=== PATIENT | female | born 1945 | race Caucasian/White ===

== ENCOUNTER → 2018-01-24 09:46 | Outpatient (CLI) | payer MEDICARE, SELFPAY ==
[2018-01-24 10:08] LABS: Basophils # 0.1 K/mm3 (0-0.2); Basophils % 0.8 % (0.1-2.0); Eosinophils # 0.1 K/mm3 (0.0-0.4); Eosinophils % 1.9 % (0.1-12.0); Hematocrit 37.1 % (37.0-47.0); Hemoglobin 12.1 g/dL (12.2-16.2); Lymphocytes # 1.9 K/mm3 (0.7-4.5); Mean Corpuscular HGB Conc 32.8 g/dL (31.8-35.4); Mean Corpuscular Hemoglobin 29.8 pg (27.0-31.2); Mean Corpuscular Volume 90.8 fl (81-99); Mean Platelet Volume 7.9 fl (7.4-10.4); Monocytes # 0.4 K/mm3 (0.1-1.0); Monocytes % 5.1 % (1.7-9.3); Neutrophils # 4.6 K/mm3 (1.8-7.8); Neutrophils % 65.3 % (37.0-80.0); Platelet Count 234 K/mm3 (142-424); Red Blood Count 4.08 M/mm3 (4.20-5.40); Red Cell Distribution Width 13.4 % (11.5-17.5); White Blood Count 7.1 K/mm3 (4.8-10.8)
[2018-01-24 11:22] LABS: Alanine Aminotransferase 32 U/L (12-78); Albumin Level 3.7 gm/dL (3.4-5.0); Alkaline Phosphatase 59 U/L (46-116); Anion Gap 10.3 mEq/L (5-15); Aspartate Amino Transferase 17 U/L (15-37); Bilirubin,Total 0.3 mg/dL (0.2-1.0); Blood Urea Nitrogen 24 mg/dL (7-18); Calcium 9.2 mg/dL (8.5-10.1); Carbon Dioxide 29 mmol/L (21.0-32.0); Chloride 107 mmol/L (98-107); Chol/HDL Ratio 2.5 (1-3.5); Cholesterol 150 mg/dL (140-200); Creatinine,Serum 1.45 mg/dL (0.55-1.02); Estimated Glomerular Filt Rate 35 ml/min (>60); GFR (African American) 43 ML/MIN (>60); Globulin 3.6 gm/dl (1.3-3.2); Glucose 100 mg/dL (74-106); HDL Cholesterol 59 mg/dL (29-89); LDL Cholesterol 58 mg/dL (0-130); Potassium 4.3 mmoL/L (3.5-5.1); Sodium 142 mmol/L (136-145); Thyroid Stimulating Hormone 2.12 uIU/ml (0.358-3.740); Total Protein,Serum 7.3 gm/dL (6.4-8.2); Triglycerides 165 mg/dL (30-200); VLDL Cholesterol 33 mg/dL (0-40)
[2018-01-25 18:03] LABS: Vitamin B12 337 pg/mL (232-1245); Vitamin D 25 Hydroxy 22.7 ng/mL (30.0-100.0)
== END ==
PROVIDERS: PCP Nurse Practitioner Family; Visit Provider Nurse Practitioner Family
DX: I10 Essential (primary) hypertension (principal); E53.8 Deficiency of other specified B group vitamins; E55.9 Vitamin D deficiency, unspecified; G62.9 Polyneuropathy, unspecified
CPT/HCPCS: 36415; 80053; 80061; 82607; 82652; 84443; 85025

== ENCOUNTER → 2018-06-12 11:02 | Outpatient (CLI) | payer MEDICARE, SELFPAY ==
--- NOTE | 2018-06-12 11:06 | XR_ITS ---
XR foot wt bearing LT 3V HISTORY: ITS.REASON: pain ORDERING PHYSICIAN: Brittney Mckenzie DPM PATIENT AGE: 73 years COMPARISON: 03/26/2011 FINDINGS: There is mild hallux valgus with osteoarthritis of the first metatarsophalangeal joint and apparent prior bunionectomy of the distal first metatarsal. No acute fracture or dislocation evident. There is an old healed fifth metatarsal fracture. There is an intramedullary imer tibia with a bone plate along the lateral malleolus region. IMPRESSION: No change prior bunionectomy first metatarsal with Rohan valgus and osteoarthritis. Old fifth metatarsal fracture
--- NOTE | 2018-06-12 11:06 | XR_ITS ---
XR foot wt bearing RT 3V HISTORY: ITS.REASON: Pain ORDERING PHYSICIAN: Brittney Mckenzie DPM PATIENT AGE: 73 years COMPARISON: 07/16/2014 FINDINGS: There are mild osteoarthritic changes of the first metatarsophalangeal junction with mild hallux valgus. Prior bunionectomy. No fracture or dislocation. No lytic or blastic change with no significant change in the previous exam. IMPRESSION: No change mild hallux valgus with prior bunionectomy and osteoarthritis of the first MTP joint
== END ==
PROVIDERS: Visit Provider Podiatrist
DX: M79.671 Pain in right foot (principal); M79.672 Pain in left foot
CPT/HCPCS: 73630

== ENCOUNTER → 2018-07-21 10:40 | Outpatient (POV) | payer MEDICARE, SELFPAY | PROVIDERS: Visit Provider Physician Assistant | DX: Z00.00 Encounter for general adult medical examination without abnormal findings (principal) ==

== ENCOUNTER → 2018-07-26 10:49 | Outpatient (CLI) | payer MEDICARE, SELFPAY ==
--- NOTE | 2018-07-26 12:01 | XR_ITS ---
XR shoulder RT min 2V COMPARISON: PA and lateral chest 02/09/2014 HISTORY: Right shoulder pain TECHNIQUE: 3 views right shoulder FINDINGS: The clavicle is intact. There is slight cortical irregularity of the acromion process of the scapula at the AC joint and this could be due to the somewhat high riding humeral head using indication of underlying rotator cuff pathology. Humeral head and glenoid appear intact. There are no soft tissue calcifications. To old injury. IMPRESSION: Cortical irregularity of the acromion process likely posttraumatic in etiology, doubt acute fracture, suggest clinical correlation for possible rotator cuff pathology
--- NOTE | 2018-07-26 12:01 | XR_ITS ---
XR chest 2V HISTORY: ITS.REASON: COUGH ORDERING PHYSICIAN: Washington San MD PATIENT AGE: 73 years COMPARISON: None available FINDINGS: The cardiomediastinal silhouette and pulmonary vascularity are within normal limits. The lungs are clear without infiltrates, suspicious nodules, or pleural effusions. No acute bony abnormalities. IMPRESSION: Negative chest, no acute finding
== END ==
PROVIDERS: PCP Internal Medicine Adolescent Medicine; Visit Provider Internal Medicine Adolescent Medicine
DX: R05 Cough (principal); M25.511 Pain in right shoulder
CPT/HCPCS: 71046; 73030

== ENCOUNTER → 2018-10-11 12:25 | Outpatient (CLI) | payer MEDICARE, SELFPAY | PROVIDERS: Visit Provider Internal Medicine Adolescent Medicine | DX: R10.9 Unspecified abdominal pain (principal) | CPT/HCPCS: 87086 ==

== ENCOUNTER 2018-10-20 14:30 | Outpatient (RCR) | payer MEDICARE, SELFPAY | END 2018-10-20 14:35 | disposition home or self-care (01) | LOC: PT 14:30 | PROVIDERS: PCP Internal Medicine Adolescent Medicine; Visit Provider Psychiatry & Neurology Neurology | DX: R27.0 Ataxia, unspecified (principal) | CPT/HCPCS: 97110; 97112; 97163 ==

== ENCOUNTER 2019-04-03 10:00 | Outpatient (RCR) | payer MEDICARE, SELFPAY ==
--- NOTE | 2019-03-25 13:45 | HMH.PTOPEV ---
PT Outpatient Evaluation Rehab PT Outpatient Evaluation Start: 03/25/19 13:32 Freq: Status: Active Protocol: Document 03/25/19 13:32 SUSHANT (Rec: 03/25/19 13:45 SUSHANT [id number]) Electronically Signed By Devin Pavon, PT 03/25/19 13:32 Outpatient Therapy Subjective History Subjective History Pt reports decreased endurance and strength over the last ~3 -4 months. Pt reports a 'bad spell' in Jan., I woke up and didn't have the strength to get out of bed'. Pt reports multiple tests (MRI, CT, etc) were all negative, 'but I've fallen a bunch due to my blood pressure dropping and been struggling to regain my strength'. Pt reports rehab stay and HHPT over the lsat 3- 4 weeks has improved function, and BP med change 'seems to be helping'. Chief Complaint Gives out/Unstable,Weakness Symptom Type Other Symptoms Relieved By Rest/Positioning Symptoms Aggravated By Standing,Physical Activity, Walking Prior Functional Limitations Lifting,Housework,Standing, Squatting,Walking Current Functional Limitations Lifting,Housework,Standing, Squatting,Walking,Stairs, Balance Symptom Description Constant but Variable Lumbopelvic Eval Manual Muscle Test Right Knee Extension Strength Grade 5 Normal Knee Flexion Strength Grade 5 Normal Hip Flexion Strength Grade 4- Good- Hip Abduction Strength Grade 4- Good- Hip Adduction Strength Grade 4- Good- Hip External Rotation Strength Grade 4- Good- Hip Internal Rotation Strength Grade 4- Good- Hip Extension Strength Grade 4- Good- Ankle Dorsiflexion Strength Grade 5 Normal Gastronemius/Soleus Strength Grade 5 Normal Left Knee Extension Strength Grade 5 Normal Knee Flexion Strength Grade 5 Normal Hip Flexion Strength Grade 4 Good Hip Abduction Strength Grade 4 Good Hip Adduction Strength Grade 4 Good Hip External Rotation Strength Grade 4 Good Hip Internal Rotation Strength Grade 4 Good Hip Extension Strength Grade 4 Good Ankle Dorsiflexion Strength Grade 5 Normal Gastronemius/Soleus Strength Grade 5 Normal Balance Eval Hx of Falls Hx Falls Yes Number in last 6 months 8 Gait/Posture Asssessment General Gait Observation
== END 2019-04-03 10:05 | disposition home or self-care (01) ==
LOC: PT 10:00
PROVIDERS: Visit Provider Nurse Practitioner Family
DX: R29.6 Repeated falls (principal); R27.0 Ataxia, unspecified
CPT/HCPCS: 97110; 97112; 97163

== ENCOUNTER → 2019-04-13 16:20 | Outpatient (CLI) | payer MEDICARE, SELFPAY ==
[2019-04-13 17:11] LABS: Basophils # 0.1 K/mm3 (0-0.2); Basophils % 0.5 % (0.1-2.0); Eosinophils # 0.1 K/mm3 (0.0-0.4); Hematocrit 41.8 % (37.0-47.0); Hemoglobin 13.5 g/dL (12.2-16.2); Lymphocytes # 3.1 K/mm3 (0.7-4.5); Lymphocytes % 35.7 % (10-50); Mean Corpuscular HGB Conc 32.4 g/dL (31.8-35.4); Mean Corpuscular Hemoglobin 28.9 pg (27.0-31.2); Mean Corpuscular Volume 89.2 fl (81-99); Mean Platelet Volume 7.3 fl (7.4-10.4); Monocytes # 0.4 K/mm3 (0.1-1.0); Neutrophils # 5.1 K/mm3 (1.8-7.8); Neutrophils % 57.9 % (37.0-80.0); Platelet Count 240 K/mm3 (142-424); Red Blood Count 4.68 M/mm3 (4.20-5.40); Red Cell Distribution Width 13.5 % (11.5-17.5); White Blood Count 8.8 K/mm3 (4.8-10.8)
[2019-04-13 18:50] LABS: Alanine Aminotransferase 27 U/L (12-78); Albumin Level 3.8 gm/dL (3.4-5.0); Albumin/Globulin Ratio 1.1 (1.1-1.8); Alkaline Phosphatase 57 U/L (46-116); Anion Gap 14.6 mEq/L (5-15); Aspartate Amino Transferase 18 U/L (15-37); Bilirubin,Total 0.4 mg/dL (0.2-1.0); Blood Urea Nitrogen 19 mg/dL (7-18); Calcium 9.5 mg/dL (8.5-10.1); Carbon Dioxide 27 mmol/L (21.0-32.0); Chloride 102 mmol/L (98-107); Creatinine,Serum 1.28 mg/dL (0.55-1.02); Estimated Glomerular Filt Rate 41 ml/min (>60); GFR (African American) 49 ML/MIN (>60); Globulin 3.4 gm/dl (1.3-3.2); Glucose 91 mg/dL (74-106); Potassium 4.6 mmoL/L (3.5-5.1); Sodium 139 mmol/L (136-145); Total Protein,Serum 7.2 gm/dL (6.4-8.2)
== END ==
PROVIDERS: Visit Provider Internal Medicine Adolescent Medicine
DX: R10.84 Generalized abdominal pain (principal)
CPT/HCPCS: 36415; 80053; 85025

== ENCOUNTER 2019-04-17 12:47 | Outpatient (CLI) | payer MEDICARE, SELFPAY ==
[2019-04-17 12:37] VITALS: BMI 26.9
[2019-04-17 12:49] VITALS: BP 124/71; PULSE 62; RESP 18; TEMP 36.6; O2SAT 98
[2019-04-17 13:18] LABS: Anion Gap 15.1 mEq/L (5-15); Blood Urea Nitrogen 15 mg/dL (7-18); Calcium 9.2 mg/dL (8.5-10.1); Carbon Dioxide 24 mmol/L (21.0-32.0); Chloride 103 mmol/L (98-107); Creatinine Clearance Estimated 48 mL/min (50-200); Creatinine,Serum 1.31 mg/dL (0.55-1.02); Estimated Glomerular Filt Rate 40 ml/min (>60); GFR (African American) 48 ML/MIN (>60); Glucose 97 mg/dL (74-106); Potassium 4.1 mmoL/L (3.5-5.1); Sodium 138 mmol/L (136-145)
[2019-04-17 13:20] VITALS: BP 140/79; PULSE 70; RESP 18; TEMP 36.6; O2SAT 97
[2019-04-17 14:00] VITALS: BP 134/79; PULSE 69; RESP 18; TEMP 36.6; O2SAT 98
== END 2019-04-17 14:00 | disposition home or self-care (01) ==
LOC: INF 12:47
PROVIDERS: Visit Provider Nurse Practitioner Family
DX: E86.0 Dehydration (principal)
CPT/HCPCS: 80048; 96360

== ENCOUNTER → 2019-07-14 10:56 | Outpatient (POV) | payer MEDICARE, SELFPAY | PROVIDERS: Visit Provider Dermatology | DX: Z00.00 Encounter for general adult medical examination without abnormal findings (principal) ==

== ENCOUNTER → 2019-12-31 12:45 | Outpatient (CLI) | payer MEDICARE, SELFPAY ==
--- NOTE | 2019-12-31 12:49 | FL_ITS ---
PROCEDURE: FL BARIUM SWALLOW MODIFIED CLINICAL INDICATION: DIFFICULTY SWALLOWING COMPARISON: No exams were available for comparison TECHNIQUE: Patient administered varying consistencies of barium contrast, while viewed in lateral position under real-time fluoroscopy with cine recording. FLUOROSCOPY TIME:2 minutes and 22 seconds The study was performed in conjunction with speech pathologist. Please see that report & recommendations. FINDINGS: Patient was given varying consistencies of barium. There was premature spillage with vallecular pooling with thin liquids with mild delay in initiation of the swallowing mechanism with mild amount of residue. No aspiration or penetration. IMPRESSION: Mildly impaired pharyngeal phase without evidence of aspiration or penetration Please see speech pathologist report and recommendations. Dictated by: Mau Gonzales MD 01/01/2020 18:48 Electronically signed by Mau Gonzales MD in [place] 01/01/2020 18:48
--- NOTE | 2019-12-31 15:51 | HMH.SLMBS2 ---
Speech & Language Evaluation Speech/Language Mod Barium Swallow Start: 12/31/19 14:47 Freq: once Status: Complete Protocol: Document 12/31/19 15:11 CMAY (Rec: 12/31/19 15:50 CMAY [id number]) [facility] Recommendations Diet Dietary Recommendations Regular,Thin Liquids Treatment/Strategies Strategy/Precaution Recommend Sitting Upright (90 deg),Small Bites and Sips,Alternate Liquids/Solids Referrals/Other Recommended Referrals GI Consult Mod Barium Swallow Impressions Summary and Impressions Oral Phase Impression Minimal Impairment Oral Phase Summary Oral phase was WFL based on the results of this evaluation . Patient had adequate upper and lower dentition for mastication of mechancial soft and solid trials. Patient demonstrated a minimal amount of lingual residue following pudding trial. Pharyngeal Phase Impression Mild Impairment Pharyngeal Phase Summary Pharyngeal phase was mildly impaired. Premature spillage was observed and resulted in a moderate amount of vallecular pooling before swallow initiation on trials of thin liquids that cleared completely with swallow event. Swallow initiation was minimally delayed as bolus reached the level of the epiglottis before swallow was initiated with pudding trial. Minimal vallecular residue was also observed following trials of puree and solid that cleared with thin liquid wash and/or effortful swallow. Speech/Language MBS Assessment/Goals/Plan Assessment Date of Evaluation: 12/31/19 Evaluation Type Initial Certification Assessment/Problems Dysphagia Does Patient Qualify for Service No Qualify/Failure Comment Patient does not qualify for ST services at this time based on the results of today's evaluation. It is recommended that patient receive a GI consult to address esophageal phase of swallow. Recommendations PHYSICIAN CERTIFICATION: The specified thera
== END ==
PROVIDERS: PCP Nurse Practitioner Family; Visit Provider Nurse Practitioner Family
DX: R13.10 Dysphagia, unspecified (principal)
CPT/HCPCS: 70371; 92611

== ENCOUNTER → 2020-04-18 09:50 | Outpatient (CLI) | payer MEDICARE, SELFPAY ==
[2020-04-18 11:00] VITALS: PULSE 81; PULSE 85
--- NOTE | 2020-04-18 11:35 | XR_ITS ---
PROCEDURE: XR CHEST 2V CLINICAL HISTORY: DYSPNEA Dyspnea on exertion COMPARISON: WO CT CHEST W/O CONTRAST from 03/19/2014 CXR1 CHEST-PORTABLE from 03/05/2017 CXR2V XR chest 2V from 07/26/2018 CXR1VP XR chest portable from 10/06/2018 FINDINGS: The cardiomediastinal silhouette and pulmonary vascularity are within normal limits. The lungs are clear without infiltrates, suspicious nodules, or pleural effusions. No acute bony abnormalities. IMPRESSION: No acute findings. Dictated by: Mau Gonzales MD 04/18/2020 11:53 Electronically signed by Mau Gonzales MD in [place] 04/18/2020 11:53
== END ==
PROVIDERS: PCP Nurse Practitioner Family; Visit Provider Nurse Practitioner Family
DX: R06.09 Other forms of dyspnea (principal)
CPT/HCPCS: 71046; 94060; 94640; 94727; 94729

== ENCOUNTER → 2020-07-26 14:49 | Outpatient (POV) | payer MEDICARE, SELFPAY | PROVIDERS: Visit Provider Dermatology | DX: Z00.00 Encounter for general adult medical examination without abnormal findings (principal) ==

== ENCOUNTER → 2021-03-17 13:50 | Outpatient (CLI) | payer MEDICARE, SELFPAY ==
[2021-03-17 14:13] LABS: Basophils # 0.1 K/mm3 (0-0.2); Basophils % 0.8 % (0.1-2.0); Eosinophils # 0.2 K/mm3 (0.0-0.4); Eosinophils % 1.9 % (0.1-12.0); Hematocrit 40.7 % (37.0-47.0); Hemoglobin 13.4 g/dL (12.2-16.2); Lymphocytes # 2.6 K/mm3 (0.7-4.5); Lymphocytes % 32.4 % (10-50); Mean Corpuscular HGB Conc 32.8 g/dL (31.8-35.4); Mean Corpuscular Hemoglobin 29.5 pg (27.0-31.2); Mean Corpuscular Volume 89.8 fl (81-99); Mean Platelet Volume 7.7 fl (7.4-10.4); Monocytes # 0.4 K/mm3 (0.1-1.0); Monocytes % 4.9 % (1.7-9.3); Neutrophils # 4.9 K/mm3 (1.8-7.8); Platelet Count 196 K/mm3 (142-424); Red Blood Count 4.54 M/mm3 (4.20-5.40); Red Cell Distribution Width 13.7 % (11.5-17.5); White Blood Count 8.1 K/mm3 (4.8-10.8)
[2021-03-17 15:04] LABS: Blood Urea Nitrogen 19 mg/dl (7-17); Carbon Dioxide 26 mmol/L (22.0-30.0); Estimated Glomerular Filt Rate 31 ml/min (>60); GFR (African American) 38 ML/MIN (>60)
[2021-03-17 15:05] LABS: Alanine Aminotransferase 22 U/L (12-78); Albumin Level 4.6 g/dl (3.5-5.0); Albumin/Globulin Ratio 1.6 (1.1-1.8); Anion Gap 13.7 mEq/L (5-15); Aspartate Amino Transferase 34 U/L (14-36); Bilirubin,Total 0.4 mg/dl (0.2-1.3); Calcium 10.4 mg/dl (8.4-10.2); Chloride 105 mmol/L (98-107); Cholesterol 192 mg/dl (140-200); Globulin 2.8 g/dL (1.3-3.2); Glucose 105 mg/dl (74-100); HDL Cholesterol 57 mg/dl (40-60); Potassium 4.7 mmoL/L (3.5-5.1); Sodium 140 mmol/L (136-145); Total Protein,Serum 7.4 g/dl (6.3-8.2); Triglycerides 209 mg/dl (30-150); VLDL Cholesterol 42 mg/dL (0-40)
[2021-03-17 15:06] LABS: Alkaline Phosphatase 65 U/L (38-126); Chol/HDL Ratio 3.4 (1-3.5)
[2021-03-17 15:17] LABS: Direct LDL Cholesterol 95.56 mg/dL (100-129)
[2021-03-17 15:21] LABS: 25-OH Vitamin D, Total 43.5 ng/mL (30-100)
[2021-03-17 15:26] LABS: Coronavirus 19 IgG Antibody Positive (Negative); Coronavirus 19 IgM Antibody Negative (Negative)
[2021-03-17 15:54] LABS: Vitamin B12 310 pg/mL (239-931)
== END ==
PROVIDERS: Internal Medicine Adolescent Medicine; Visit Provider Internal Medicine Gastroenterology
DX: Z01.812 Encounter for preprocedural laboratory examination (principal); Z20.822 Contact with and (suspected) exposure to COVID-19; I10 Essential (primary) hypertension; E78.5 Hyperlipidemia, unspecified; E53.8 Deficiency of other specified B group vitamins; E55.9 Vitamin D deficiency, unspecified
CPT/HCPCS: 36415; 80053; 80061; 82306; 82607; 85025; 86328

== ENCOUNTER 2021-03-20 11:19 | Day surgery (SDC) | payer MEDICARE, SELFPAY ==
[2021-03-17 11:34] VITALS: BMI 27.3
[2021-03-20] VITALS (8 sets, daily range): BP systolic 141–193; BP diastolic 79–87; PULSE 60–82; RESP 14–20; TEMP 36.1–36.2; O2SAT 95–100
--- NOTE | 2021-03-20 13:47 | P.PN_ITS ---
[facility] Anesthesia Checklist - Patient Identification Patient Identification: Arm Band - Structural Data Admitted From: Long-term Nursing Facility Planned Operative Procedure/s: EGD - NPO Status Verified Time NPO: 00:00 - Airway Assessment Dentition: Good Dentition - Neurological Assessment Level of Consciousness: Awake, Alert Hx Seizures: No Numbness or tingling in extremities: No - Anesthesia Plan Anesthesia Risk discussed: Yes Anesthesia Plan: Verified ASA Class: III Anesthesia Type: MAC [facility] History Medical History: Reports:: Asthma, Chronic Obstructive Pulmonary Disease (COPD), Gastroesophageal Reflux Disease(GERD), Hyperlipidemia, Hypertension, Myocardial Infarction Denies:: Cancer, Diabetes Mellitus Type 1, Diabetes Mellitus Type 2, Internal Pacemaker, MRSA, Seizures *Have you ever received a pneumonia vaccine?: Yes *Have you received a flu vaccine this season?: Yes Other Medical History: Reports: Arthritis, Other Anesthesia experience/problems:: None Laterality Cases: Bilateral: Lumpectomy Other Surgeries: Yes: Cardiac Catheterization, Hysterectomy-Total. No: Pacemaker Amputation: No Fractures: No - *Social History Last grade of school completed: Some college Smoking Status: Never smoker Alcohol Intake: never Alcohol Intake Frequency:: other Substance Use Type: denies use *Occupational Status:: retired Housing: house *Travel in the last 8 weeks: None Family Hx:: Hyperlipidemia
--- NOTE | 2021-03-20 14:01 | P.PCN_ITS ---
[facility] Procedure Note Procedure Note:: Upper Endoscopy Procedure Report: Esophagogastroduodenoscopy with cold biopsies and TTS balloon dilation Endoscopost: Leonides Austin II, MD Referring Physician: Elvira ALONSO Date of Procedure: 03/20/2021 Equipment: Olympus GIF 190 standard upper endoscope Sedation: MAC sedation Indications: Mrs. Garzon is a 75-year-old female who is here for diagnostic upper endoscopy secondary to dyspepsia. She has had gnawing upper abdominal pain that lasted more than 10 days recently. She does get this dyspepsia intermittently but this does not last long. She does have heartburn and reflux that is 90% controlled with omeprazole. She does report some early satiety and intermittent dysphagia. She reports no bloating, belching or nausea. She does have some chronic constipation. Her last upper endoscopy was 28 years ago. Her last colonoscopy was 5 years ago and was normal. Procedure: Prior to the procedure, a history and physical exam was performed, and patient's medications and allergies were reviewed. The risks, benefits and alternatives of the sedation and procedure were discussed with the patient. All questions were answered and informed consent was obtained. The patient was brought to the procedure room. Patient identification and proposed procedure were verified by the physician and the nurse. The patient was placed in a left lateral decubitus position and the scope was passed under direct vision. Throughout the procedure, the patient's blood pressure, pulse, and oxygen saturations were monitored continuously. The upper GI endoscopy was accomplished without difficulty. The patient tolerated the procedure well. Findings: The scope was passed directly into the upper esophagus and advanced to the third portion of the duodenum. The post bulbar duodenum and duodenal bulb were normal with normal mucosa and conniventes. The scope was withdrawn through a normal duodenal bulb and pylorus into the stomach. There was evidence of linear reactive gastropathy of the antrum of the stomach. The remainder of the body and fundus of the stomach were grossly normal. Upon retroflexion there was no hiatal hernia. 2 biopsies were taken in the antrum and along the lesser curvature for histology to rule out gastritis and/or H pylori. There was a single fundic gland polyp in the body of the stomach that was removed via cold biopsy. The scope was then withdrawn into the esophagus. There was a serrated Z-line. Biopsies were taken at the GE junction. There were tertiary contractions and evidence of moderate esophageal dysmotility. The entire esophagus was dilated to 60 Icelandic/20 mm with a TTS hydrostatic balloon. There was some resistance at the cricopharyngeus. The remainder of the esophageal mucosa was normal. Impression: 1. Cricopharyngeal spasm status post dilation to 20 mm 2. Nonerosive GERD with moderate esophageal dysmotility 3. Bile reflux with moderate linear reactive gastropathy Plan: I will follow up the biopsies. The patient does have functional dyspepsia secondary to obstipation and gas pressure gradients. We will discuss additional dietary measures, fiber bowel regimen and treatment options.
--- NOTE | 2021-03-20 14:06 | P.PN_ITS ---
[facility] Anesthesia Record Part I Intake, IV Amount: 600 Estimated blood loss (mL): 0 Urine output (mL): 0 Blood Pressure: 141/79 SaO2: 96 Pulse Rate: 82 Respiratory Rate: 14 Temperature: 97.1 F Patient is:: Drowsy Stable to PACU at:: 14:02
== END 2021-03-20 15:00 | disposition home or self-care (01) ==
LOC: OUTP 11:21
PROVIDERS: PCP Nurse Practitioner Family; Visit Provider Internal Medicine Gastroenterology
PROC: 0DJ08ZZ Inspection of Upper Intestinal Tract, Via Natural or Artificial Opening Endoscopic (ICD-10-PCS; CPT 43235; principal; 2021-03-20 12:30)
DX: J39.2 Other diseases of pharynx (principal); K21.9 Gastro-esophageal reflux disease without esophagitis; K22.4 Dyskinesia of esophagus; K31.9 Disease of stomach and duodenum, unspecified; K31.7 Polyp of stomach and duodenum; J45.909 Unspecified asthma, uncomplicated; J44.9 Chronic obstructive pulmonary disease, unspecified; E78.5 Hyperlipidemia, unspecified; I10 Essential (primary) hypertension; I25.2 Old myocardial infarction; M19.90 Unspecified osteoarthritis, unspecified site; Z79.899 Other long term (current) drug therapy
CPT/HCPCS: 43239; 43249; 88305; C1726

== ENCOUNTER → 2021-06-10 11:59 | Outpatient (CLI) | payer MEDICARE, SELFPAY | PROVIDERS: PCP Internal Medicine Adolescent Medicine; Visit Provider Internal Medicine Gastroenterology | DX: Z20.822 Contact with and (suspected) exposure to COVID-19 (principal) ==

== ENCOUNTER → 2021-06-10 12:47 | Outpatient (CLI) | payer MEDICARE, SELFPAY | PROVIDERS: Visit Provider Internal Medicine Gastroenterology | DX: Z01.812 Encounter for preprocedural laboratory examination (principal); Z20.822 Contact with and (suspected) exposure to COVID-19; Z12.11 Encounter for screening for malignant neoplasm of colon | CPT/HCPCS: U0003 ==

== ENCOUNTER 2021-06-12 11:13 | Day surgery (SDC) | payer MEDICARE, SELFPAY ==
[2021-06-07 14:27] VITALS: BMI 27.3
[2021-06-12] VITALS (8 sets, daily range): BP systolic 166–187; BP diastolic 91–100; PULSE 78–94; RESP 18; TEMP 36.2–36.9; O2SAT 95–100
--- NOTE | 2021-06-12 13:20 | HMH.ANESCL ---
[facility] Anesthesia Checklist - Structural Data Admitted From: Home Planned Operative Procedure/s: colonoscopy Consent for Planned Operative Procedure(s) Verified: Yes - Airway Assessment C-Spine Mobility Assessed: Yes TMJ Mobility Assessed: Yes Dentition: Good Dentition - Neurological Assessment Level of Consciousness: Awake, Alert, Appropriate - Anesthesia Plan Anesthesia Risk discussed: Yes Anesthesia Plan: Verified ASA Class: III Anesthesia Type: MAC [facility] History I have reviewed the patient's past medical history: Yes Medical History: Reports:: Asthma, Chronic Obstructive Pulmonary Disease (COPD), Gastroesophageal Reflux Disease(GERD), Hyperlipidemia, Hypertension, Myocardial Infarction Denies:: Cancer, Diabetes Mellitus Type 1, Diabetes Mellitus Type 2, Internal Pacemaker, MRSA, Seizures *Have you ever received a pneumonia vaccine?: Yes *Have you received a flu vaccine this season?: Yes Other Medical History: Reports: Arthritis, Other Anesthesia experience/problems:: none Laterality Cases: Bilateral: Lumpectomy Other Surgeries: Yes: Cardiac Catheterization, Hysterectomy-Total. No: Pacemaker Amputation: No Fractures: No - *Social History Last grade of school completed: Some college Smoking Status: Never smoker Alcohol Intake: never Alcohol Intake Frequency:: other Substance Use Type: denies use *Occupational Status:: retired Housing: house Household Members: family, none *Travel in the last 8 weeks: None Family Hx:: Hyperlipidemia
--- NOTE | 2021-06-12 13:48 | P.PCN_ITS ---
[facility] Procedure Note Procedure Note:: Colonoscopy Procedure Report: Colonoscopy to hepatic flexure Endoscopist: Leonides Austin II, MD Referring physician: Elvira ALONSO Date of Procedure: June 12, 2021 Equipment: Olympus 190 variable stiffness pediatric colonoscope Sedation: MAC sedation Indication: Mrs. Garzon is a 76-year-old female who is here for diagnostic colonoscopy. The patient has had some chronic gnawing abdominal pain. She did have a recent EGD on March 20, 2021. This did show some bile reflux with moderate reactive gastropathy. The patient has had bowel irregularity with alternating constipation and diarrhea. Her last colonoscopy was approximately 5 years ago. She reports no rectal bleeding, weight loss or family history of colon cancer. She has had prior hysterectomy. Procedure: Prior to the procedure, a history and physical exam was performed, and patient's medications and allergies were reviewed. The risks, benefits and alternatives of the sedation and procedure were discussed with the patient. All questions were answered and informed consent was obtained. The patient was brought to the procedure room. Patient identification and proposed procedure were verified by the physician and the nurse. The patient was placed in a left lateral decubitus position and the scope was passed under direct vision. Throughout the procedure, the patient's blood pressure, pulse, and oxygen saturations were monitored continuously. The colonoscopy was accomplished without difficulty. The patient tolerated the procedure well. Findings: On digital rectal examination there was normal rectal tone. There were no external hemorrhoids. The colonoscope was introduced through the anal canal to the rectum and advanced to the hepatic flexure. There was some angulation and looping making completion to the cecum more difficult. There was pericolonic adhesions within the sigmoid colon from prior hysterectomy. The remainder of the mucosa of the transverse, descending, sigmoid and rectum were normal. Upon retroflexion within the rectum there were grade 1 internal hemorrhoids.The preparation was excellent throughout with Bay Preparation Score of 9. The cecal time was 12 minutes. Impression: 1. Normal colonoscopy to hepatic flexure 2. Pericolonic sigmoid adhesions (probably from prior hysterectomy) with colonic looping/tortuosity 3. Grade 1 internal hemorrhoids Plan: I will discuss the findings with the patient and family. The patient is clinically improved.
== END 2021-06-12 14:52 | disposition home or self-care (01) ==
LOC: OUTP 11:15
PROVIDERS: PCP Nurse Practitioner Family; Visit Provider Internal Medicine Gastroenterology
PROC: 0DJD8ZZ Inspection of Lower Intestinal Tract, Via Natural or Artificial Opening Endoscopic (ICD-10-PCS; CPT 45378; principal; 2021-06-12 13:00)
DX: K64.0 First degree hemorrhoids (principal); R10.9 Unspecified abdominal pain; K59.00 Constipation, unspecified; K56.51 Intestinal adhesions [bands], with partial obstruction; R19.7 Diarrhea, unspecified; J45.909 Unspecified asthma, uncomplicated; J44.9 Chronic obstructive pulmonary disease, unspecified; K21.9 Gastro-esophageal reflux disease without esophagitis; E78.5 Hyperlipidemia, unspecified; I10 Essential (primary) hypertension; I25.2 Old myocardial infarction; M19.90 Unspecified osteoarthritis, unspecified site
CPT/HCPCS: 45378

== ENCOUNTER → 2021-08-24 11:33 | Outpatient (CLI) | payer MEDICARE, SELFPAY ==
[2021-08-24 13:05] LABS: Chloride 105 mmol/L (98-107); Potassium 4.8 mmoL/L (3.5-5.1); Sodium 141 mmol/L (136-145)
[2021-08-24 13:08] LABS: Alanine Aminotransferase 22 U/L (12-78); Albumin Level 4.2 g/dl (3.5-5.0); Albumin/Globulin Ratio 1.6 (1.1-1.8); Alkaline Phosphatase 74 U/L (38-126); Anion Gap 14.8 mEq/L (5-15); Aspartate Amino Transferase 35 U/L (14-36); Bilirubin,Total 0.2 mg/dl (0.2-1.3); Blood Urea Nitrogen 20 mg/dl (7-17); Carbon Dioxide 26 mmol/L (22.0-30.0); Estimated Glomerular Filt Rate 40 ml/min (>60); GFR (African American) 48 ML/MIN (>60); Globulin 2.7 g/dL (1.3-3.2); Total Protein,Serum 6.9 g/dl (6.3-8.2)
[2021-08-24 13:09] LABS: Calcium 9.7 mg/dl (8.4-10.2); Glucose 97 mg/dl (74-100)
== END ==
PROVIDERS: Visit Provider Nurse Practitioner Family
DX: N18.31 Chronic kidney disease, stage 3a (principal); E83.52 Hypercalcemia
CPT/HCPCS: 36415; 80053

== ENCOUNTER → 2021-10-10 09:04 | Outpatient (CLI) | payer MEDICARE, SELFPAY ==
--- NOTE | 2021-10-10 09:19 | XR_ITS ---
PROCEDURE: XR DEXA AXIAL SKELETON CLINICAL HISTORY: POST MENOPAUSAL COMPARISON: No exams were available for comparison FINDINGS: The right hip BMD is -6.83 with a T-score of -1.5. The left hip BMD is -0.653 with a T-score of -1.8. The lumbar spine BMD is 1.197 with a T-score of 1.4. IMPRESSION: This patient is considered osteopenic according to the World Health Organization criteria. Bone density is between 10 and 25 percent below young normal. Fracture risk is moderate. Treatment is advised. Based on these results a follow-up exam is recommended in 2 year. Dictated by: Mau Gonzales MD 10/10/2021 12:41 Mau Gonzales MD in [place] 10/10/2021 12:41
== END ==
PROVIDERS: PCP Internal Medicine Adolescent Medicine; Visit Provider Nurse Practitioner Family
DX: Z78.0 Asymptomatic menopausal state (principal)
CPT/HCPCS: 77080

== ENCOUNTER 2022-02-05 15:08 | Emergency (ER) | payer MEDICARE, SELFPAY ==
[2022-02-05 17:22] VITALS: BP 0/0; PULSE 0; RESP 0; TEMP -17.7; TEMP 0
== END 2022-02-05 17:23 | disposition left against medical advice (07) ==
LOC: UTC 15:13
PROVIDERS: Emergency Provider Nurse Practitioner Family; PCP Internal Medicine Adolescent Medicine
DX: Z53.21 Procedure and treatment not carried out due to patient leaving prior to being seen by health care provider (principal); Z79.51 Long term (current) use of inhaled steroids; Z79.899 Other long term (current) drug therapy

== ENCOUNTER 2022-03-09 15:05 | Emergency (ER) | payer MEDICARE, SELFPAY ==
[2022-03-09 15:07] VITALS: BP 143/66; PULSE 84; RESP 16; TEMP 36.8; O2SAT 96; BMI 28.5
--- NOTE | 2022-03-09 15:17 | HMH.EDFALL ---
ED Disposition Clinical Impression: Contusion, hip and thigh Qualifiers: Encounter type: initial encounter Laterality: right Qualified Code(s): S70.01XA - Contusion of right hip, initial encounter; S70.11XA - Contusion of right thigh, initial encounter Disposition: Home, Self-Care Condition on Discharge: Fair Instructions: How to Prevent Falls Additional Instructions: You may continue taking all your medications as prescribed. Additionally I would recommend some [id number] Tylenol for your pain. Follow-up with your primary care physician in about 3 to 4 days if you do not feel any improvement. Return to the emergency department immediately if you feel worse in any way. Your x-rays today did not show any breaks or dislocations. Referrals: Washington San MD [Primary Care Provider] - - Critical Care Critical Care Time: No Attestation: On , the high probability of a clinically significant, sudden or life threatening deterioration of the following system(s) required my full and direct attention, intervention and personal management. The time I documented below is in addition to time spent performing reported procedures but includes the following listed in this critical care notation. Medical Decision Making - Medical Records Medical records reviewed: Yes: I reviewed the patient's medical records. - Simon Inquiry Pt receiving controlled substance: No Simon was queried for this patient: No Vital Signs: 03/09/22 15:07 03/09/22 16:19 Temperature 98.3 F Temperature Source Oral Pulse Rate 70 Pulse Rate [Right] 84 Respiratory Rate 16 16 Blood Pressure 114/66 Blood Pressure [Right Arm] 143/66 H Blood Pressure Mean [Right Arm] 91 Blood Pressure Source Automatic Cuff Blood Pressure Source [Right Arm] Automatic Cuff Blood Pressure Position Sitting Blood Pressure Position [Right Arm] Sitting 02 Sat by Pulse Oximetry 96 98 Oxygen Delivery Method Room Air Room Air Orders (Tests/Meds): ED MEDICATIONS Discontinued Medications Generic Name Dose Route Start Last Admin Trade Name Freq PRN Reason Stop Dose Admin Hydrocodone Bitart/Acetaminophen 1 tab 03/09/22 16:18 03/09/22 16:21 Hydrocodone/Apap 5/325 Mg Tablet PO 03/09/22 16:19 1 tab ONCE ONE Administration - Radiology Data #1 Image(s): Pelvis, Hip Image Reviewed: Yes I reviewed the patient's radiology results, Yes I reviewed the patient's radiology image, Yes I have reviewed radiologist's interpretation Preliminary Findings: Normal/NAD Medical Decision Narrative: The patient presents to the emergency department after having sustained a fall and hurting her lower back as well as her right hip. The patient is able to sustainability officer the emergency department and transfer from the chair to the stretcher. The patient is neurovascularly intact on examination. Plain radiographs of the right hip and pelvis did not show any acute fractures or dislocation. The patient did sustain a few skin tears which were not actively bleeding. I feel that the patient can be safely discharged home with instructions to follow-up with her primary care physician in the next day or 2 if her symptoms do not improve. Fall HPI - General Stated Complaint: a/o back and hip pain (at home) Time Seen by Provider: 03/09/22 15:17 Mode of Arrival: Wheelchair Source of Information: Patient Limitations: No Limitations - History of Present Illness HPI Narrative: The patient fell earlier this morning complaining of right-sided hip and lower pelvic pain. Has been able to get up on her own after the fall and is able to bear weight on both legs. complaint: fall - Related Data Home Medications Medication Instructions Recorded Confirmed fluticasone 250 mcg-salmeterol 50 250 mcg INHALATION DAILY 30 Days 05/12/18 06/12/21 mcg/dose blistr powdr for #60 inhalation furosemide 20 mg tablet 20 mg PO NEEDED PRN 30 Days #30 05/12/18 06/12/21 galantamine
--- NOTE | 2022-03-09 15:19 | XR_ITS ---
FINAL REPORT CLINICAL HISTORY: Fall and Rt hip alvarenga FINDINGS: RIGHT HIP Four views were obtained. There is no acute fracture or dislocation. Mild degenerative changes are present. No soft tissue abnormality is identified. IMPRESSION: No acute process. If symptoms persist, consider follow-up CT or MRI. Reviewed, Interpreted and Dictated by Guillermo Rodriguez III, MD Transcribed by Siobhan Pinto Authenticated by Guillermo Rodriguez III, MD on 03/09/2022 04:36:16 PM [facility]
--- NOTE | 2022-03-09 16:18 | PC.NURSE ---
Went in to assess pt. C/O pain at this time. Let her know we were waiting on the official read for her films. Asked MD for pain medication. V/O for norco 5mg given, ordered and medicated pt.
[2022-03-09 16:19] VITALS: BP 114/66; PULSE 70; RESP 16; O2SAT 98
[2022-03-09 17:38] VITALS: BP 123/74; PULSE 78; RESP 16; TEMP 36.6; O2SAT 98
== END 2022-03-09 17:39 | disposition home or self-care (01) ==
PROVIDERS: Emergency Provider Emergency Medicine; PCP Internal Medicine Adolescent Medicine
DX: S70.01XA Contusion of right hip, initial encounter (principal); S70.11XA Contusion of right thigh, initial encounter; W01.0XXA Fall on same level from slipping, tripping and stumbling without subsequent striking against object, initial encounter; Y92.019 Unspecified place in single-family (private) house as the place of occurrence of the external cause; K21.9 Gastro-esophageal reflux disease without esophagitis; E78.5 Hyperlipidemia, unspecified; I10 Essential (primary) hypertension; J44.9 Chronic obstructive pulmonary disease, unspecified
CPT/HCPCS: 73502; 99283

== ENCOUNTER → 2022-03-26 15:20 | Outpatient (CLI) | payer MEDICARE, SELFPAY ==
--- NOTE | 2022-03-26 15:40 | XR_ITS ---
FINAL REPORT CLINICAL HISTORY: LOW BACK PAIN AT [facility], PATIENT FELL 3 WEEKS AGO, LOW BACK PAIN RADIATING DOWN LEFT LEG. FINDINGS: 4 views were obtained. There is 15 degrees of lumbar scoliosis convex to the left. There is no acute fracture. There is no malalignment. There is moderate disc space narrowing at T12-L1, L1-L2, and L2-L3 with endplate sclerosis particularly evident at L2-L3. IMPRESSION: Moderately advanced degenerative disc disease particularly at L1-L2 and L2-L3. Reviewed, Interpreted and Dictated by Juan Pablo Holly MD Transcribed by John Ríos Authenticated by Juan Pablo Holly MD on 03/26/2022 04:52:36 PM [facility]
== END ==
PROVIDERS: PCP Nurse Practitioner Family; Visit Provider Internal Medicine Adolescent Medicine
DX: M54.50 Low back pain, unspecified (principal)
CPT/HCPCS: 72110

== ENCOUNTER 2022-08-29 08:29 | Emergency (ER) | payer MEDICARE, SELFPAY ==
--- NOTE | 2022-08-29 09:01 | EXP.UTC ---
Discharge Plan Disposition Patient Disposition: Home, Self-Care Condition: Good Prescriptions Prescriptions: New cephalexin 500 mg capsule 500 mg PO QID Qty: 40 0RF mupirocin 2 % ointment 1 applic topical TID 7 Days Qty: 1 0RF No Action furosemide 20 mg tablet 20 mg PO NEEDED PRN (Reason: Edema) 30 Days Qty: 30 fluticasone propion-salmeterol 250-50 mcg/dose blister with device 250 mcg INHALATION DAILY 30 Days Qty: 60 galantamine 8 mg capsule,ext rel. pellets 24 hr 16 mg PO DAILY 90 Days Qty: 90 metoprolol tartrate 25 mg tablet 25 mg PO BID gabapentin 300 MG capsule 300 mg PO NEEDED PRN (Reason: pain) simvastatin 10 MG tablet 10 mg PO HS omeprazole 40 MG capsule,delayed release(DR/EC) 40 mg PO BID albuterol sulfate 1.25 MG/3 ML solution for nebulization 1.25 mg IH NEEDED PRN (Reason: asthma) famotidine 20 MG tablet 20 mg PO BID [id number]-liyfegwr 1 EACH blister with device 1 each IH DAILY Referrals Follow up/Referrals: Helga Hess [Primary Care Provider] - See instructions Activity Restrictions/Add. Instructions Additional Instructions/Restrictions: Keep the wound clean and dry. Watch the for signs of infection, such as redness, swelling, drainage, fever. etc. Take tylenol for pain. Follow up with her regular doctor. GO TO THE ER FOR ANY WORSENING SYMPTOMS OR CONCERNS. Clinical Impressions Clinical Impression: Fall, Face lacerations, Need for Tdap vaccination Instructions Patient Instructions: How to Prevent Falls, Tetanus, Diphtheria, Pertussis (Tdap) Vaccine, DI for Minor Laceration Discharge ED Provider: Aung Rivera [facility] General Stated complaint: AO 08/29@home@0600 lac on R brow Time Seen by Provider: 08/29/22 09:10 History of Present Illness Provider Complaint: She fell early this morning around 0500 when she got up to go to the bathroom. she bumped her right side of her forehead on something when she fell. She has a laceration just above her right eye. She denies any loc or dissiness or other complaints. Her daughter glued the laceration with glue at home. They came in because they were afraid the wound would start to bleed again. She denies an vision changes. She denies any neck pain or neck injury. Related Data Home Medications Medication Instructions Recorded Confirmed fluticasone 250 mcg-salmeterol 50 250 mcg inhalation DAILY Allergy 05/12/18 06/12/21 mcg/dose blistr powdr for symptoms 30 days ##60 inhalation furosemide 20 mg tablet 20 mg PO NEEDED PRN Edema 30 05/12/18 06/12/21 days ##30 galantamine 8 mg 24 hr 16 mg PO DAILY memory 90 days ##90 05/12/18 06/12/21 capsule,extended release gabapentin 300 mg capsule 300 mg PO NEEDED PRN pain 01/24/19 06/12/21 metoprolol tartrate 25 mg tablet 25 mg PO BID High blood pressure 04/07/19 06/12/21 omeprazole 40 mg capsule,delayed 40 mg PO BID GERD 04/17/19 06/12/21 release simvastatin 10 mg tablet 10 mg PO HS Cholesterol 04/17/19 06/12/21 albuterol sulfate 1.25 mg/3 mL 1.25 mg IH NEEDED PRN asthma 03/17/21 06/12/21 solution for nebulization famotidine 20 mg tablet 20 mg PO BID GERD 03/17/21 06/12/21 fluticasone fur. 100 mcg-umeclid 1 each IH DAILY COPD 03/17/21 06/12/21 62.5 mcg-vilant 25 mcg inhalat.powder Previous Rx's Medication Instructions Recorded cephalexin 500 mg capsule 500 mg PO QID #40 caps 08/29/22 mupirocin 2 % topical ointment 1 applic topical TID 7 days #1 g 08/29/22 Allergies Allergy/AdvReac Type Severity Reaction Status Date / Time No Known Allergies Allergy Verified 06/07/21 14:30 PFSH PFSH Social History Smoking Status: Never smoker alcohol intake: never substance use type: denies use current occupational status: retired Travel in the last 8 weeks: None household members: family and none housing: house caffeine: Yes ROS Obtained
[2022-08-29 09:19] VITALS: BP 160/87; PULSE 67; RESP 15; TEMP 36.8; O2SAT 100; BMI 28.8
--- NOTE | 2022-08-29 09:57 | PC.NURSE ---
Pt ambulating to bathroom
[2022-08-29 10:30] VITALS: BP 160/87; PULSE 67; RESP 15; TEMP 36.8; O2SAT 100
== END 2022-08-29 10:30 | disposition home or self-care (01) ==
PROVIDERS: Emergency Provider Nurse Practitioner Family; PCP Nurse Practitioner Family
DX: S01.111A Laceration without foreign body of right eyelid and periocular area, initial encounter (principal); W19.XXXA Unspecified fall, initial encounter; Z23 Encounter for immunization
CPT/HCPCS: 90471; 90715; 99212; G0463

== ENCOUNTER 2022-09-11 11:11 | Outpatient (RCR) | payer MEDICARE, SELFPAY | END 2022-11-05 12:30 | disposition home or self-care (01) | LOC: PT 11:11 | DX: J45.909 Unspecified asthma, uncomplicated (principal) | CPT/HCPCS: G0237; G0238 ==

== ENCOUNTER 2022-11-03 12:33 | Observation (INO) | payer MEDICARE, SELFPAY ==
[2022-11-03] VITALS (13 sets, daily range): BP systolic 113–158; BP diastolic 70–90; PULSE 67–97; RESP 17–25; TEMP 36.7–37.1; O2SAT 93–100; BMI 28.7; BMI 28.5
--- NOTE | 2022-11-03 12:35 | ECG_ITS ---
APPROVED REPORT Exam: Resting ECG HR:88 bpm ECG Measurements Heart Rate 88 AXES DE 180 P 30 QRSd 101 QRS -24 QT 388 T 41 QTc 433 Conclusion SINUS RHYTHM BORDERLINE LEFT AXIS DEVIATION [QRS AXIS < -20] MINIMAL ST DEPRESSION [0.025+ mV ST DEPRESSION] BORDERLINE ECG UNCONFIRMED REPORT Electronically signed by : Washington San MD 11/04/2022 09:33:22
[2022-11-03 12:44] LABS: Coronavirus 19, PCR Not Detected (NotDetected); Influenza A, PCR Not Detected (NotDetected); Influenza B, PCR Not Detected (NotDetected)
--- NOTE | 2022-11-03 12:44 | PC.NURSE ---
DR. MILLER AT BEDSIDE FOR EVALUATION
--- NOTE | 2022-11-03 12:57 | XR_ITS ---
PROCEDURE INFORMATION: Exam: XR Chest Exam date and time: 11/03/2022 1:48 PM Age: 77 years old Clinical indication: Shortness of breath; Additional info: AMS TECHNIQUE: Imaging protocol: Radiologic exam of the chest. Views: 1 view. COMPARISON: CR XR CHEST 2V 04/18/2020 11:44 AM FINDINGS: Lungs: Left lower lobe consolidation suspicious for pneumonia. Pleural spaces: Trace bilateral pleural effusions. No pneumothorax. Heart/Mediastinum: See Vasculature finding. Vasculature: Aortic atherosclerosis. Cardiomegaly. Bones/joints: Unremarkable. IMPRESSION: 1. Left lower lobe consolidation suspicious for pneumonia. 2. Trace bilateral pleural effusions. No pneumothorax.
--- NOTE | 2022-11-03 12:57 | CT_ITS ---
PROCEDURE INFORMATION: Exam: CT Head Without Contrast Exam date and time: 11/03/2022 1:34 PM Age: 77 years old Clinical indication: Altered mental status/memory loss; Confusion or disorientation; Additional info: Fall, head trauma TECHNIQUE: Imaging protocol: Computed tomography of the head without contrast. Radiation optimization: All CT scans at this facility use at least one of these dose optimization techniques: automated exposure control; mA and/or kV adjustment per patient size (includes targeted exams where dose is matched to clinical indication); or iterative reconstruction. COMPARISON: No relevant prior studies available. FINDINGS: Brain: Chronic small vessel ischemic disease. No acute intracranial hemorrhage, midline shift, or mass effect. Basilar cisterns are patent. No findings to suggest acute infarction. Cerebral ventricles: Moderate cerebral atrophy. Paranasal sinuses: Visualized sinuses are unremarkable. No fluid levels. Mastoid air cells: Visualized mastoid air cells are well aerated. Bones/joints: Hyperostosis frontalis. No acute fracture. Soft tissues: Mild soft tissue swelling overlying the left frontal bone. IMPRESSION: 1. No acute intracranial hemorrhage, midline shift, or mass effect. No findings to suggest acute infarction. 2. Moderate cerebral atrophy. Chronic small vessel ischemic disease. 3. Mild soft tissue swelling overlying the left frontal bone.
[2022-11-03 13:06] LABS: Basophils % 0.3 % (0.1-2.0); Chloride 104 mmol/L (98-107); Eosinophils # 0.2 K/mm3 (0.0-0.4); Eosinophils % 2.1 % (0.1-12.0); Hematocrit 37.3 % (37.0-47.0); Lymphocytes # 0.5 K/mm3 (0.7-4.5); Lymphocytes % 4.8 % (10-50); Mean Corpuscular HGB Conc 32.3 g/dL (31.8-35.4); Mean Corpuscular Hemoglobin 30.8 pg (27.0-31.2); Mean Corpuscular Volume 95.4 fl (81-99); Mean Platelet Volume 8.1 fl (7.4-10.4); Monocytes # 0.4 K/mm3 (0.1-1.0); Monocytes % 3.5 % (1.7-9.3); Neutrophils # 8.8 K/mm3 (1.8-7.8); Neutrophils % 89.3 % (37.0-80.0); Platelet Count 202 K/mm3 (142-424); Red Blood Count 3.91 M/mm3 (4.20-5.40); Red Cell Distribution Width 13.4 % (11.5-17.5); Sodium 135 mmol/L (136-145); White Blood Count 9.9 K/mm3 (4.8-10.8)
[2022-11-03 13:08] LABS: MANUAL DIFFERENTIAL MANUAL DIFFERENTIAL (MANUAL DIFF)
[2022-11-03 13:09] LABS: Alanine Aminotransferase 27 U/L (12-78); Alkaline Phosphatase 79 U/L (38-126); Aspartate Amino Transferase 36 U/L (14-36); Bilirubin,Total 0.3 mg/dl (0.2-1.3); Blood Urea Nitrogen 24 mg/dl (7-17); Carbon Dioxide 25 mmol/L (22.0-30.0); Creatinine Clearance Estimated 34 mL/min (50-200); Estimated Glomerular Filt Rate 26 ml/min (>60); GFR (African American) 31 ML/MIN (>60)
[2022-11-03 13:10] LABS: Albumin/Globulin Ratio 1.4 (1.1-1.8); Calcium 9.4 mg/dl (8.4-10.2); Creatine Kinase 45 U/L (30-135); Globulin 2.8 g/dL (1.3-3.2); Glucose 123 mg/dl (74-100); Lipase 67 U/L (23-300); Total Protein,Serum 6.8 g/dl (6.3-8.2)
[2022-11-03 13:18] LABS: Lymphocytes % 6 % (10-50); Monocytes % 1 % (2-9); Neutrophils % 93 % (42-76); Total Cells Counted 100
[2022-11-03 13:19] LABS: NT Pro Brain Natriuretic Pep. 661 pg/mL (0-450); Platelet Estimate Normal; RBC Morphology Normal
--- NOTE | 2022-11-03 13:19 | PC.NURSE ---
respiratory contacted about vbg
[2022-11-03 13:26] LABS: Troponin I < 0.01 ng/ml (0.00-0.034)
--- NOTE | 2022-11-03 13:27 | HMH.EDGENADL ---
Discharge Plan Disposition Patient Disposition: Admitted As Inpatient Condition: Fair Chief Complaint: Dizziness Prescriptions Prescriptions: No Action furosemide 20 mg tablet 20 mg PO NEEDED PRN (Reason: Edema) 30 Days Qty: 30 galantamine 8 mg capsule,ext rel. pellets 24 hr 16 mg PO DAILY 90 Days Qty: 90 metoprolol tartrate 25 mg tablet 25 mg PO BID amitriptyline 50 mg tablet 50 mg PO DAILY memantine 5 mg tablet 5 mg PO DAILY Linzess 72 mcg capsule 72 mcg PO DIRECTED Label Comments: TAKE 1 CAPSULE BY MOUTH ONCE DAILY simvastatin 10 MG tablet 10 mg PO HS omeprazole 40 MG capsule,delayed release(DR/EC) 40 mg PO BID albuterol sulfate 1.25 MG/3 ML solution for nebulization 1.25 mg IH NEEDED PRN (Reason: asthma) famotidine 20 MG tablet 20 mg PO BID [id number]-ihxybhpee-xkqqspuh 1 EACH blister with device 1 each IH DAILY Referrals Follow up/Referrals: Helga Hess [Primary Care Provider] - See instructions Clinical Impressions Clinical Impression: Bacterial lobar pneumonia, Acute UTI, Delirium Discharge ED Provider: Yousif Cunningham General Adult HPI General Chief complaint: Dizziness Stated complaint: Dizziness Time Seen by Provider: 11/03/22 12:35 Mode of Arrival: EMS Source of Information: Patient Limitations: No Limitations Description of Symptoms (Recalled from ER Triage Doc. by RN): PT BROUGHT IN VIA EMS FOR A FALL AT HOME AND DIZZINESS, DAUGHTER REPORTS PT HAS FALLEN FREQUENTLY AT HOME. PT STATES SHE WAS CONFUSED THIS AM, DIDN'T KNOW HER . CURRENTLY BEING TREATED FOR UTI. PT ALERT AND ORIENTED PER VIA, ABLE TO ANSWER ALL QUESTIONS FOR THIS NURSE APPROPRIATELY History of Present Illness HPI narrative: This is a 77-year-old female with history of chronic small vessel disease, numerous falls, chronic debilitation/weakness presenting with fall, urinary incontinence, confusion. Patient's daughter is at bedside and helps provide some history. Per patient, she was getting out of bed after she realized she had urinated on herself, felt weak, leaned against the bed, then slid into the floor. She states that she had been there no more than 15 minutes. Per daughter, patient has been progressively worsening in terms of mental status and functionality physically for the past 6 to 8 weeks. Has been seen at numerous ED's, diagnosed with a urinary tract infection most recently and started on cefdinir, today is day 7 out of 7 of the cefdinir treatment. Per patient's daughter, patient has also been talking out of her head, grabbing at things that are not there, and talking to her . Patient states that she has generalized fatigue, but no unilateral weakness, vision changes, headache, nausea, vomiting, fevers, chills, chest pain, shortness of breath. She has had 1 episode of urinary incontinence, has dysuria when she does urinate and urinary frequency. Related Data Home Medications Medication Instructions Recorded Confirmed furosemide 20 mg tablet 20 mg PO NEEDED PRN Edema 30 05/12/18 11/03/22 days ##30 galantamine 8 mg 24 hr 16 mg PO DAILY memory 90 days ##90 05/12/18 11/03/22 capsule,extended release metoprolol tartrate 25 mg tablet 25 mg PO BID High blood pressure 04/07/19 11/03/22 omeprazole 40 mg capsule,delayed 40 mg PO BID GERD 04/17/19 11/03/22 release simvastatin 10 mg tablet 10 mg PO HS Cholesterol 04/17/19 11/03/22 albuterol sulfate 1.25 mg/3 mL 1.25 mg IH NEEDED PRN asthma 03/17/21 11/03/22 solution for nebulization famotidine 20 mg tablet 20 mg PO BID GERD 03/17/21 11/03/22 fluticasone fur. 100 mcg-umeclid 1 each IH DAILY COPD 03/17/21 11/03/22 62.5 mcg-vilant 25 mcg inhalat.powder amitriptyline 50 mg tablet 50 mg PO DAILY Depression 11/03/22 11/03/22 linaclotide 72 mcg capsule 72 mcg PO DIRECTED BOWELS 11/03/22 11/03/22 (Linzess) memantine 5 mg tablet 5 mg PO DAILY MEMORY 12
[2022-11-03 13:36] LABS: VBG Base Excess 1.1 mmol/L (-2.4-2.3); VBG HCO3 25.9 mmol/L (23-30); VBG Oxygen Saturation 32.8 % (50-70); VBG PCO2 42.6 mmol/L (35-51); VBG PO2 18.6 mmol/L (28-40); VBG Total CO2 27.2 mmol/L (23-27)
[2022-11-03 13:38] LABS: Microscopic, Urine URINE MICROSCOPIC (MICROSCOPIC)
[2022-11-03 13:40] LABS: Appearance,Urine CLEAR (Clear); Bilirubin,Urine Negative (Negative); Blood, Urine Negative (Negative); Color,Urine YELLOW (Yellow); Glucose,Urine (UA) Negative (Negative); Ketones,Urine Negative (Negative); Leukocyte Esterase,Urine 2+ (Negative); Nitrate,Urine Negative (Negative); PH,Urine 6.5 (5.0-8.5); Protein,Urine Negative (Negative); Specific Gravity, Urine 1.015 (1.005-1.030); Urobilinogen,Urine 0.2 EU/dl (0.2)
--- NOTE | 2022-11-03 13:40 | PC.NURSE ---
PT RETURNED FROM CT
[2022-11-03 13:53] LABS: Amphetamine/Metha Screen,Urine Negative ng/ml (<1000); Bacteria,Urine 1+ /lpf; Barbiturates Screen,Urine Negative ng/ml (<200); Squamous Epithelial Cell,Urine Occasional #/hpf (0-5)
[2022-11-03 13:54] LABS: Benzodiazepines Screen,Urine Negative ng/ml (<200)
[2022-11-03 13:55] LABS: Cannabinoid Screen,Urine Negative ng/ml (<50); Cocaine Screen,Urine Negative ng/ml (<300)
[2022-11-03 13:56] LABS: Methadone Screen,Urine Negative ng/ml (<300)
[2022-11-03 13:57] LABS: Opiate Screen,Urine Negative ng/ml (<300); Phencyclidine Screen,Urine Negative ng/ml (<25)
[2022-11-03 14:36] LABS: Lactic Acid 1.6 mmol/L (0.7-2.1)
--- NOTE | 2022-11-03 14:53 | EXP.HP ---
History of Present Illness *Admission Date: 11/03/22 *Reason for visit:: weakness, shortness of breath *History of present illness: Mrs. Garzon is a 77-year-old female brought into the ER via EMS after a fall at home. Daughter is with her at bedside and states that the patient has been more dizzy, having frequent falls at home. She is fallen at least 4 times in the past 6 weeks. Most recent was 3 weeks ago where per her daughter's report patient broke her tailbone. They had previously been going to [place] ER. Daughter very concerned about patient's continued falls and weakness. Has had a couple new medications recently for neuropathy and memory started seem to have exacerbated her problem. Patient reports she was confused this morning, did not know her husbandwas not alive. Currently being treated for UTI, no cultures present however. Has been able to answer questions without difficulty, providing history and by her daughter. In the ER, patient stated that, she was getting out of bed after she realized she had urinated on herself, felt weak, leaned against the bed, then slid into the floor. She was on the floor for less than 15 minutes. When daughter came to look for, she called EMS to help get her up and bring her for evaluation. On evaluation in the ER, patient found to have mild CHF with elevated BNP. Chest imaging concerning for left lower lobe airspace disease. Labs remarkable for GRETCHEN and normal white cell count with left shift. Medicine consulted for admission for CHF exacerbation, left lower lobe pneumonia, and acute kidney injury. After arriving to the floor, patient and daughter interviewed. Patient is a pleasant woman with a recent history of numerous falls, chronic debility, neuropathy, and urinary incontinence. Per ER report: Increased confusion per daughter. Patient has been progressively worsening in terms of mental status and functionality physically for the past 6 to 8 weeks.? Has been seen at numerous ED's, diagnosed with a urinary tract infection most recently and started on cefdinir, today is day 7 out of 7 of the cefdinir treatment.? Per patient's daughter, patient has also been talking out of her head, grabbing at things that are not there, and talking to her . ? Patient states that she has generalized fatigue, but no unilateral weakness, vision changes, headache, nausea, vomiting, fevers, chills, chest pain, shortness of breath.? She has had 1 episode of urinary incontinence, has dysuria when she does urinate and urinary frequency. [facility] Disclaimer: The information contained in this section may have been updated after the patient was seen, as this information can be updated by other users. Medical History (Updated 11/03/22 @ 18:42 by Aung Onofre MD) Asthma Fibromyalgia GERD (gastroesophageal reflux disease) History of anemia History of cataract History of IBS History of transient ischemic attack (TIA) Hyperlipemia Hypertension Kidney stone Surgical History H/O: hysterectomy History of ankle surgery Hx of breast biopsy Family History No significant family history Social History (Updated 11/03/22 @ 18:39 by Kelsy Claros RN) Smoking Status: Never smoker alcohol intake: never substance use type: denies use current occupational status: retired Travel in the last 8 weeks: None household members: family and none housing: house caffeine: Yes Review of Systems Review of Systems Review of systems (narrative): 14 point review of systems performed, pertinent positives and negatives as per HPI Meds Home Medications and Allergies Home Medications Medication Instructions Recorded Confirmed Type furosemide 20 mg tablet 20 mg PO NEEDED PRN Edema 30 05/12/18 11/03/22 History days ##30 galantamine 8 mg 24 hr 24 mg PO DAILY memory 90 days ##90 05/12/18 11/03/22
--- NOTE | 2022-11-03 15:21 | PC.NURSE ---
MINE ENGINEERING MANAGER NOTIFIED OF ADMISSION, BED REQUESTED
--- NOTE | 2022-11-03 15:47 | PC.NURSE ---
Pt had 300 cc urine output
--- NOTE | 2022-11-03 17:37 | PC.NURSE ---
REPORT GIVEN TO Nilo DAVID RN AT THIS TIME
--- NOTE | 2022-11-03 17:46 | PC.NURSE ---
PT TO MED-SURG AT THIS TIME
[2022-11-03 18:51] LABS: Troponin I < 0.01 ng/ml (0.00-0.034)
[2022-11-03 21:34] LABS: Troponin I < 0.01 ng/ml (0.00-0.034)
[2022-11-04] VITALS: BP 154/75; PULSE 70; PULSE 73; RESP 20; TEMP 36.9; O2SAT 97
[2022-11-04 04:00] VITALS: BP 136/83; PULSE 80; PULSE 86; RESP 18; TEMP 36.8; O2SAT 97
--- NOTE | 2022-11-04 04:42 | PC.NURSE ---
NO ACUTE CHANGES SINCE PREVIOUS ASSESSMENT. PT A&O X 3. PT C/O OF HEADACHE AT BEGINNING OF SHIFT - MEDICATED PER JAN WITH FAVORABLE RESULTS. PT HAS RESTED WELL. REQUIRING X 1 ASSIST TO BATHROOM FOR SAFETY. PT HAS VOIDED 800 MLS THUS FAR DURING MY SHIFT. REMAINS ON ROOM AIR. NO OTHER NEEDS OR COMPLAINTS VOICED AT THIS TIME. CALL LIGHT IN REACH, BED ALARM ON.
[2022-11-04 05:00] VITALS: BMI 28.6
[2022-11-04 08:00] VITALS: BP 135/75; PULSE 80; PULSE 81; RESP 18; TEMP 37.3; O2SAT 96
--- NOTE | 2022-11-04 08:07 | HMH.PHAINT1 ---
Pharmacy Intervention Comments: MEDICATION RECONCILIATION COMPLETED ON PATIENT USING EXTERNAL FILL HISTORY FROM PHARMACY AND JUANITA REPORT. -HECTOR ART, SHANNOND
[2022-11-04 08:38] LABS: Basophils % 0.1 % (0.1-2.0); Chloride 105 mmol/L (98-107); Eosinophils # 0.4 K/mm3 (0.0-0.4); Hematocrit 32.9 % (37.0-47.0); Hemoglobin 11.1 g/dL (12.2-16.2); Lymphocytes # 0.4 K/mm3 (0.7-4.5); Lymphocytes % 5.1 % (10-50); Mean Corpuscular HGB Conc 33.8 g/dL (31.8-35.4); Mean Corpuscular Volume 91.8 fl (81-99); Mean Platelet Volume 8.1 fl (7.4-10.4); Monocytes # 0.4 K/mm3 (0.1-1.0); Monocytes % 4.8 % (1.7-9.3); Neutrophils # 6.3 K/mm3 (1.8-7.8); Neutrophils % 84.9 % (37.0-80.0); Platelet Count 164 K/mm3 (142-424); Red Blood Count 3.58 M/mm3 (4.20-5.40); Red Cell Distribution Width 13.4 % (11.5-17.5); Sodium 133 mmol/L (136-145); White Blood Count 7.4 K/mm3 (4.8-10.8)
[2022-11-04 08:39] LABS: Potassium 3.6 mmoL/L (3.5-5.1)
[2022-11-04 08:41] LABS: Alanine Aminotransferase 21 U/L (12-78); Albumin Level 3.2 g/dl (3.5-5.0); Albumin/Globulin Ratio 1.3 (1.1-1.8); Alkaline Phosphatase 83 U/L (38-126); Anion Gap 5.6 mEq/L (5-15); Aspartate Amino Transferase 34 U/L (14-36); Bilirubin,Total 0.2 mg/dl (0.2-1.3); Blood Urea Nitrogen 21 mg/dl (7-17); Calcium 8.7 mg/dl (8.4-10.2); Carbon Dioxide 26 mmol/L (22.0-30.0); Cholesterol 131 mg/dl (140-200); Creatinine Clearance Estimated 38 mL/min (50-200); Estimated Glomerular Filt Rate 29 ml/min (>60); GFR (African American) 35 ML/MIN (>60); Globulin 2.5 g/dL (1.3-3.2); Glucose 105 mg/dl (74-100); Total Protein,Serum 5.7 g/dl (6.3-8.2); Triglycerides 121 mg/dl (30-150); VLDL Cholesterol 24 mg/dL (0-40)
[2022-11-04 08:42] LABS: HDL Cholesterol 33 mg/dl (40-60); Magnesium 1.8 mg/dl (1.6-2.3)
[2022-11-04 08:53] LABS: Direct LDL Cholesterol 59.01 mg/dL (100-129)
--- NOTE | 2022-11-04 10:57 | HMH.PTEV ---
Physical Therapy Evaluation Rehab PT IP Evaluation Start: 11/03/22 18:40 Freq: ONCE Status: Active Protocol: Document 11/04/22 10:20 PHOJESSICA (Rec: 11/04/22 10:57 PHORNE [id number]) Subjective/History History History 77 yowf adm to [facility] with hx of frequent falls, UTI, PNA, AMS. She is now A&O x 3 and reports she lives with her daughter, 2 steps to enter the home, and she uses a walker for ambulation. Subjective Subjective Currenty feeling much better after diuresis with less SOA upon exertion. Rehab PT IP Eval Objective Appearance Patient Behavior Appropriate Patient Orientation Person,Place,Time Difficulty following instructions none Speech Pattern Clear Ambulation Patient Able to Ambulate Yes Ambulation Observation IP General Gait Pattern Observation Decrease Stride Lngth (R), Decrease Stride Lngth (L) Ambulation Distance (feet) 40 Ambulation Assistive Device Rolling Walker Ambulation Ability Supervision/Stand by Balance Ability to Arise Able, uses arms to help Sitting Balance Steady, safe Standing Balance Steady, wide stance Dynamic Sitting Balance Ability Good Dynamic Standing Balance Ability Fair Transfers Bed Transfer Ability Contact Guard/Hand Hold Chair Transfer Ability Supervision/Stand by Sit to Stand Bed Transfer Ability Supervision/Stand by Sit to Stand Chair Transfer Ability Supervision/Stand by ROM All Extremities PT ROM Status WFL MMT All Extremities PT MMT WFL Rehab PT IP prob,goals,plan Problems Date of Evaluation: 11/04/22 Discharge Plan PT Discharge Plan Pt is currently at baseline for all mobility and is appropriate to return home once medically stable. Recommend Home Health therapy to improve safety and strength at home with possible outpatient therapy as appropriate later. G -code Required No Eval Complexity Eval Charge Codes 97316 - Moderate Complexity PHYSICIAN CERTIFICATION: I certify the specified therapy services for Radha Garzon are required, authorized, and reviewed every 30 days.
[2022-11-04 11:37] VITALS: BP 112/62; PULSE 61; RESP 18; TEMP 36.8; O2SAT 93
[2022-11-04 14:08] VITALS: PULSE 64; RESP 18
--- NOTE | 2022-11-04 14:27 | EXP.DC.SUM ---
General Admission date:: 11/03/22 Discharge date: 11/04/22 HPI HPI HPI: Mrs. Garzon is a 77-year-old female brought into the ER via EMS after a fall at home. Daughter is with her at bedside and states that the patient has been more dizzy, having frequent falls at home. She is fallen at least 4 times in the past 6 weeks. Most recent was 3 weeks ago where per her daughter's report patient broke her tailbone. They had previously been going to [place] ER. Daughter very concerned about patient's continued falls and weakness. Has had a couple new medications recently for neuropathy and memory started seem to have exacerbated her problem. Patient reports she was confused this morning, did not know her husbandwas not alive. Currently being treated for UTI, no cultures present however. Has been able to answer questions without difficulty, providing history and by her daughter. In the ER, patient stated that, she was getting out of bed after she realized she had urinated on herself, felt weak, leaned against the bed, then slid into the floor. She was on the floor for less than 15 minutes. When daughter came to look for, she called EMS to help get her up and bring her for evaluation. On evaluation in the ER, patient found to have mild CHF with elevated BNP. Chest imaging concerning for left lower lobe airspace disease. Labs remarkable for GRETCHEN and normal white cell count with left shift. Medicine consulted for admission for CHF exacerbation, left lower lobe pneumonia, and acute kidney injury. After arriving to the floor, patient and daughter interviewed. Patient is a pleasant woman with a recent history of numerous falls, chronic debility, neuropathy, and urinary incontinence. Per ER report: Increased confusion per daughter. Patient has been progressively worsening in terms of mental status and functionality physically for the past 6 to 8 weeks.? Has been seen at numerous ED's, diagnosed with a urinary tract infection most recently and started on cefdinir, today is day 7 out of 7 of the cefdinir treatment.? Per patient's daughter, patient has also been talking out of her head, grabbing at things that are not there, and talking to her . ? Patient states that she has generalized fatigue, but no unilateral weakness, vision changes, headache, nausea, vomiting, fevers, chills, chest pain, shortness of breath.? She has had 1 episode of urinary incontinence, has dysuria when she does urinate and urinary frequency. Hospital Course Hospital Course Hospital Course: Mrs. Garzon is a 77-year-old female with?recent history of frequent falls, weakness and legs, who presented with confusion, GRETCHEN, finding of pneumonia on chest imaging, and concern for CHF.? Admitted to medicine for further management and work-up.? Problems addressed as follows: Left lower lobe pneumonia UTI -No oxygen requirement on admission. Chest x-ray showing left lower lobe airspace disease. However has bilateral crackles on exam, concern for CHF is component of her imaging findings. Was initiated on ceftriaxone for broad coverage of urine and pulmonary sources. Urine culture on day of discharge with no growth. Will transition to 3 days of oral Levaquin for empiric broad-spectrum coverage as she is just finished cefdinir. Will follow culture and make adjustments if need be. As she is remained stable on oxygen, has improved cough with diuresis, and cultures remain negative, stable for discharge home. GRETCHEN -Creatinine improved during admission. Responded well to diuresis. CHF, elevated BNP - Unclear baseline.? Crackles on exam, edema in legs. Diuresed well with 1 dose of Lasix. Repeat dose of Lasix on day of discharge. Would benefit from outpatient echocardiogram. Will initiate Lasix daily to go home on given volume status. No other changes to home regimen. See med rec for formal medications at discharge. Memory impairment Frequent falls Debility -Patient on multi
--- NOTE | 2022-11-04 14:33 | EXP.EVENT.NO ---
Home health [id number] encounter note Name: Radha Garzon Date of : 1945 Admission date: 11/03/2022 Date of discussion: 11/04/2022 I certify that this patient, Radha Garzon, is under my care and that I had a fzrp-[id number] encounter that meets the [facility] requirements for this encounter (90 days prior to the start of care date or within 30 days after the start of care date). This newx-ed-dymj encounter for the patient occurred on 11/04/22. I certify, based on my findings with the following services are medically necessary for home health services (yes when applicable) 1. Nursing: YES for medication management 2. Physical therapy: YES 3. Occupational Therapy: YES 4. Speech-language pathology: no The encounter with the patient was in whole, or in part, for the following medical condition, which is the primary reason for home health care. Condition: Memory impairment, debility, frequent falls, neuropathy My clinical findings from the encounter support the patient is homebound due to (yes when applicable): 1. Leaving home requires a considerable and taxing effort: Yes, requires the assistance of her daughter to help drive her 2. Absences from home are infrequent or short duration or to receive health care treatment: Yes 3. Medically restricted due to immunosuppression, infectious illness, risk of infection or injury: No
[2022-11-04 15:48] VITALS: BP 105/58; PULSE 66; RESP 17; TEMP 36.7; O2SAT 95
--- NOTE | 2022-11-05 10:46 | SW/DCPLANNER ---
Addendum entered by Sheree Smith 11/05/22 11:33: Lizzy grove/ [facility] stated that services will begin today 11/05/22. Original Note: Patient information/order has been faxed to [facility] for PT/OT/retirement. I will follow up with intake once patient information is reviewed. Patient did discharge home yesterday 11/04/22 but is agreeable to home health services ([facility]).
--- NOTE | 2022-11-05 14:17 | CARE MANAGER ---
Spoke with daughter,Belia for post-discharge phone interview. She had some questions regarding her Lasix, this case aide called Dr. Onofre and he called in Lasix at [facility].
== END 2022-11-04 16:20 | disposition home health service (06) ==
LOC: ER 15:56 → 2ND 17:50
PROVIDERS: Admitting Provider Internal Medicine Adolescent Medicine; Emergency Provider Emergency Medicine; PCP Nurse Practitioner Family; Visit Provider Internal Medicine Adolescent Medicine
DX: J18.9 Pneumonia, unspecified organism (principal); R29.6 Repeated falls; N39.0 Urinary tract infection, site not specified; N17.9 Acute kidney failure, unspecified; I11.0 Hypertensive heart disease with heart failure; G31.84 Mild cognitive impairment of uncertain or unknown etiology; I50.9 Heart failure, unspecified; Z79.899 Other long term (current) drug therapy
CPT/HCPCS: G0378; 36415; 70450; 71045; 80053; 80061; 80305; 81001; 82550; 82803; 83605; 83690; 83735; 83880; 84484; 85007; 85025; 87086; 93005; 97162; 99285; C9803; J0696; U0003; U0005